=== PATIENT | female | born 1960 | race Caucasian/White ===

== ENCOUNTER → 2018-06-14 | Day surgery (SDC) | payer BC, OTHER ==
[~2018-06-14] MED LIST: AMIN500T PO; CELE200C PO; CETI10TA16 PO; DEXL60CA2 PO; FLUO10TA PO; HYDROmorphone 2 MG/ML VIAL IV PRN; IV RINGERS,LACTATED 1000ML 1,000 ML IV SCH; LEVO50TA5 PO; LIDOCAINE 1% PF 2 ML VIAL. ID PRN; LINA5TAB PO; LISI-334 PO; LISI1TAB3 PO; MELA3TAB2 PO; METF750T2 PO; MORPHINE SULFATE 2 MG/ML VIAL. IV PRN; ONDANSETRON PF 4 MG/2 ML VIAL. IV PRN; PREG150C PO; PROCHLORPERAZINE 10 MG/2 ML VIAL. IV PRN; PROPOFOL 40 ML IV ONE; SIMV40TA3 PO; ZOLP10TA PO; [UNRECOGNIZED DRUG - OTHER]; celebrex; fentaNYL PF VIAL 100 MCG/2 ML VIAL IV PRN
[2018-06-14 08:15] VITALS: BP 123/59
--- NOTE | 2018-06-18 14:07 | PATHOLOGY ---
[facility] Accession Number: [id number] . 01 Material submitted: . PART A: DISTAL ESOPHAGUS PART B: GASTRIC POLYP . 01 Clinical history: . Pre-OP DX: Ulloa's, polyps Post-OP DX: Polyps . 02 Diagnosis: A. Esophageal biopsies, distal esophagus: - Segments of mildly hyperplastic squamous esophageal mucosa and segment of columnar-lined mucosa showing chronic inflammation and intestinal metaplasia with goblet cells consistent with Ulloa's change. . B. Gastric biopsies, gastric polyp: - Well-differentiated neuroendocrine tumor, with focal mucosal erosion and acute and chronic inflammation. . (JPM:malcom/roxanne; 06/18/2018) [facility]/06/18/2018 . 02 Comment: Sections of the distal esophageal biopsy reveal segments of mildly hyperplastic squamous esophageal mucosa and a single segment of columnar-lined mucosa showing mild chronic inflammation and intestinal metaplasia with goblet cells consistent with Ulloa's change. There is no dysplasia or evidence of malignancy. . Sections of the gastric biopsy reveal three segments of gastric mucosa. One of the biopsy segments reveals small irregular solid nests of tumor cells within the lamina propria and muscularis mucosa. The tumor cells have modest amounts of pale eosinophilic cytoplasm, and possess [id number] relatively uniform-appearing nuclei. The remaining segments of gastric mucosa have a polypoid appearance and show focal mucosal erosion, acute and chronic inflammation, and reactive hyperplastic changes of gastric foveolar epithelium. A limited panel of immunoperoxidase stains is obtained on block B1 and yields the following results: . CK7: Tumor cells negative. CK20: Tumor cells negative. Chromogranin: Tumor cells positive. Synaptophysin: Tumor cells positive. CDX2: Tumor cells negative. . The morphologic and immunophenotypic findings are supportive of the diagnosis of well-differentiated neuroendocrine tumor. The case is also examined by Dr. Alicea, who concurs with the diagnosis. (JPM:mml/roxanne; 06/18/2018) . . Special stains performed on B1: Cytokeratin 7, cytokeratin 20, synaptophysin, chromagranin, and CDX2. . 02 Electronically signed: . Leon Butler MD, Pathologist NPI- [id number] . 01 Gross description: . A. Received in formalin labeled "Naomi Lr, distal esophagus," are 3 segments of bailey soft tissue measuring 0.9 x 0.8 x 0.2 cm in aggregate dimensions and ranging from 0.4 to 0.5 cm in maximum dimension. The specimen is submitted entirely in cassette A1. . B. Received in formalin labeled "Naomi Lr, gastric polyp," are 3 segments of bailey soft tissue measuring 0.8 x 0.6 x 0.2 cm in aggregate dimensions and ranging from 0.3 to 0.4 cm in maximum dimension. The specimen is submitted entirely in cassette B1. (TSD; 06/14/2018) TOB/TOB . 02 Pathologist provided ICD-10: D3A.8, K22.70, K20.9, K29.00, K29.50, K25.9 . 02 CPT . 374877, 891906, D95615, P22395 Specimen Comment: A courtesy copy of this report has been sent to Specimen Comment: [phone], , . Specimen Comment: Report sent to ,DR STEINER / DR VERGARA Specimen Comment: A duplicate report has been generated due to demographic updates. Performed at: 01 [facility] [address], [place] [id number] MD Jimmy Greenberg MD Phone: [phone] Performed at: 02 [facility] [address], [place] [id number] MD Leon Butler MD Phone: [phone]
== END | disposition home or self-care (01) ==
LOC: SURG 05:52
PROVIDERS: ATTEND Internal Medicine Gastroenterology
DX: K57.30 Diverticulosis of large intestine without perforation or abscess without bleeding (principal); K64.0 First degree hemorrhoids; K22.70 Barrett's esophagus without dysplasia; K31.7 Polyp of stomach and duodenum; M19.90 Unspecified osteoarthritis, unspecified site; K29.50 Unspecified chronic gastritis without bleeding; E11.9 Type 2 diabetes mellitus without complications; K21.9 Gastro-esophageal reflux disease without esophagitis; I10 Essential (primary) hypertension; E78.00 Pure hypercholesterolemia, unspecified; F32.9 Major depressive disorder, single episode, unspecified; Z82.49 Family history of ischemic heart disease and other diseases of the circulatory system; Z83.3 Family history of diabetes mellitus; Z83.71 Family history of colonic polyps; Z86.010 Personal history of colon polyps; Z87.891 Personal history of nicotine dependence; Z79.84 Long term (current) use of oral hypoglycemic drugs; Z79.899 Other long term (current) drug therapy; Z98.51 Tubal ligation status; Z90.710 Acquired absence of both cervix and uterus; Z88.8 Allergy status to other drugs, medicaments and biological substances
CPT/HCPCS: 43239; 45378; 82962; 88305; 88341; 88342; J2704

== ENCOUNTER → 2018-07-03 | Outpatient (CLI) | payer BC, OTHER ==
[2018-06-14 08:15] VITALS: BP 123/59
[~2018-07-03] MED LIST changes: -HYDROmorphone 2 MG/ML VIAL IV PRN; +IOHEXOL 300 MG/ML 100ML VIAL. IV ONE; -IV RINGERS,LACTATED 1000ML 1,000 ML IV SCH; -LIDOCAINE 1% PF 2 ML VIAL. ID PRN; -MORPHINE SULFATE 2 MG/ML VIAL. IV PRN; -ONDANSETRON PF 4 MG/2 ML VIAL. IV PRN; -PROCHLORPERAZINE 10 MG/2 ML VIAL. IV PRN; -PROPOFOL 40 ML IV ONE; -fentaNYL PF VIAL 100 MCG/2 ML VIAL IV PRN
[2018-07-03 08:34] LABS: CREATININE 0.9 mg/dL (0.6-1.0); GFR 64.5
--- NOTE | 2018-07-03 09:45 | RAD ---
PQRS Compliance Statement: One or more of the following individualized dose reduction techniques were utilized for this examination: 1. Automated exposure control 2. Adjustment of the mA and/or kV according to patient size 3. Use of iterative reconstruction technique CT abdomen/pelvis with contrast 07/03/2018 9:02 AM INDICATION: Neuroendocrine gastric polyp COMPARISON: None available TECHNIQUE: Multiple axial CT images of the abdomen and pelvis were obtained after the intravenous administration of 75 mL Isovue-370. Coronal and sagittal reformats are provided. FINDINGS: Lung bases are clear. Heart size within normal limits. Hypoattenuation of the hepatic parenchyma suggestive of hepatic steatosis. There is no suspicious hepatic lesion identified. Spleen is nonenlarged. Adrenal glands are normal in appearance. No suspicious pancreatic mass is identified. No peripancreatic inflammatory changes are identified. Gallbladder is present. No intrahepatic or extrahepatic biliary ductal dilatation is identified. Portal venous system appears widely patent. The abdominal aorta is normal in course and caliber. There are no pathologically enlarged lymph nodes in the abdomen and pelvis. There is no abdominal free fluid. There is no free intraperitoneal air. The kidneys enhance symmetrically. There is no suspicious renal mass. There is no hydronephrosis. There are no suspected calculi within the kidneys, ureters or urinary bladder. There is mild colonic diverticulosis. Small and large bowel are normal in caliber. No evidence for bowel obstruction or inflammation. Appendix is normal in appearance. There is a hypervascular polypoid lesion along the lesser curvature of the stomach measuring 16 x 12 mm. Urinary bladder is within normal limits given degree of distention. Suspect pelvic masses are identified. No peritoneal implants are identified. No suspicious osseous abnormality is identified. IMPRESSION: 1. There is a 16 x 12 mm polypoid lesion along the lesser curvature of the stomach in keeping with provided history of neuroendocrine tumor. No evidence for metastatic disease involving the abdomen and pelvis. 2. Mild hepatic steatosis. 3. Mild colonic diverticulosis. Electronically signed by: Alejandra Villalobos MD (07/03/2018 9:42 AM) [id number]
== END | disposition home or self-care (01) ==
LOC: CT 10:00
PROVIDERS: ATTEND Internal Medicine Gastroenterology
DX: K57.30 Diverticulosis of large intestine without perforation or abscess without bleeding (principal); K76.0 Fatty (change of) liver, not elsewhere classified; K31.7 Polyp of stomach and duodenum; D37.8 Neoplasm of uncertain behavior of other specified digestive organs
CPT/HCPCS: 36415; 74177; 82565; 84520; Q9967